=== PATIENT | female | born 1985 | race Caucasian/White ===

== ENCOUNTER 2016-06-11 00:37 | Emergency (ER) | payer SELFPAY ==
[~2016-06-11 00:37] MED LIST: NO MEDICATIONS
== END 2016-06-11 00:45 | disposition home or self-care (01) ==
LOC: SED 00:37
DX: S31.821A Laceration without foreign body of left buttock, initial encounter (principal); F10.129 Alcohol abuse with intoxication, unspecified; W25.XXXA Contact with sharp glass, initial encounter; Y92.9 Unspecified place or not applicable
CPT/HCPCS: 12001; 99283